=== PATIENT | female | born 1985 | race Caucasian/White ===

== ENCOUNTER 2016-06-29 12:24 | Day surgery (SDC) | payer MEDICAID ==
[~2016-06-29] VITALS: Ht 149.9 cm; Wt 82.3 kg
[~2016-06-29 12:24] MED LIST: ALBU8.5H5 INH; DOCU-30 PO; HYDR-3240 PO; IBUP200T5 PO; ONDA4TAB10 PO
[2016-06-29] MEDS ORDERED: LACTATED RINGERS 1,000 ML IV SCH (12:57)
[2016-06-29 12:58] VITALS: BP 130/86
[2016-06-29] MEDS ORDERED: EPHEDRINE 50 MG/ML, 1ML IVPush PRN (13:00)
[2016-06-29] MEDS ORDERED: LIDOCAINE 1%, 2ML SQ PRN (13:00)
[2016-06-29] MEDS ORDERED: LABETALOL 5MG/ML, 20ML IV PRN (13:00)
[2016-06-29] MEDS ORDERED: ACETAMINOPHEN 325 MG TABLET PO PRN (13:00)
[2016-06-29] MEDS ORDERED: ONDANSETRON 2MG/ML, 2ML IVPush PRN (13:00)
[2016-06-29] MEDS ORDERED: ALBUTEROL SULFATE 2.5 MG/3 ML NPPB PRN (13:00)
[2016-06-29] MEDS ORDERED: FENTANYL PF 100 MCG/2ML IV PRN (13:00)
[2016-06-29] MEDS ORDERED: OXYcodone 5 MG/5 ML ORAL.SOL UDC PO PRN (13:00)
[2016-06-29] MEDS ORDERED: METOPROLOL 1 MG/ML, 5ML IV PRN (13:00)
[2016-06-29] MEDS ORDERED: hydrALAzine 20 MG/ML, 1ML IV PRN (13:00)
[2016-06-29] MEDS ORDERED: CHLORHEXIDINE MOUTHWASH 15 ML UDC ONE (14:13)
[2016-06-29] MEDS ORDERED: FENTANYL PF 100 MCG/2ML ONE ×2 (14:33→15:09)
[2016-06-29] MEDS ORDERED: ONDANSETRON 2MG/ML, 2ML ONE (14:35)
[2016-06-29] MEDS ORDERED: SUCCINYLCHOLINE 20 MG/ML, 10ML ONE (14:35)
[2016-06-29] MEDS ORDERED: PROPOFOL 10 MG/ML, 20ML ONE (14:35)
[2016-06-29] MEDS ORDERED: DEXAMETHASONE 4 MG/ML, 1ML ONE (14:35)
== END 2016-06-29 17:05 ==
LOC: OUT 12:24
PROVIDERS: ATTEND Anesthesiology
DX: K29.60 Other gastritis without bleeding (principal); K80.10 Calculus of gallbladder with chronic cholecystitis without obstruction
CPT/HCPCS: 43237; 88172; 88173; 88177; 88305; 88307; J0330; J1100; J2405; J2704; J3010; J7120

== ENCOUNTER → 2016-07-21 | Outpatient (CLI) | payer MEDICAID ==
[2016-07-21 14:40] LABS: BLOOD UREA NITROGEN 11 mg/dL (7-18)
[2016-07-21 14:43] LABS: ASPARTATE AMINO TRANSFERASE 11 U/L (15-37)
== END | disposition home or self-care (01) ==
LOC: STAR 13:43
PROVIDERS: ATTEND Surgery
DX: Z01.818 Encounter for other preprocedural examination (principal); C25.9 Malignant neoplasm of pancreas, unspecified; Z90.410 Acquired total absence of pancreas; Z90.81 Acquired absence of spleen
CPT/HCPCS: 36415; 80053; 85025; 85610; 93005

== ENCOUNTER 2016-07-26 05:07 | Inpatient (IN) | payer MEDICAID ==
[~2016-07-26] VITALS: Ht 147.3 cm; Wt 83.2 kg
[2016-07-26] MEDS ORDERED: LACTATED RINGERS 1,000 ML IV SCH (05:57)
[2016-07-26 05:58] VITALS: BP 121/83
[2016-07-26] MEDS ORDERED: LIDOCAINE 1%, 2ML SQ PRN (06:00)
[2016-07-26] MEDS ORDERED: THROMBIN 20,000 UNIT VIAL TP ONE (06:09)
[2016-07-26] MEDS ORDERED: BUPIVACAINE/PF 0.25% ONE (06:33)
[2016-07-26 06:41] LABS: HCG UR OBC PASS
[2016-07-26] MEDS ORDERED: KETAMINE 10 MG/ML, 20ML ONE (06:49)
[2016-07-26] MEDS ORDERED: FENTANYL PF 100 MCG/2ML ONE ×2 (06:49→09:12)
[2016-07-26] MEDS ORDERED: FENTANYL PF 250 MCG/5ML ONE (06:49)
[2016-07-26] MEDS ORDERED: MIDAZOLAM 1 MG/ML, 2ML ONE (06:49)
[2016-07-26] MEDS ORDERED: DO NOT GIVE XX SCH ×4 (08:30→14:00)
[2016-07-26] MEDS ORDERED: hydrALAzine 20 MG/ML, 1ML IV PRN ×2 (08:30→14:00)
[2016-07-26] MEDS ORDERED: MEPERIDINE/PF 25MG/0.5ML IVPush PRN (08:30)
[2016-07-26] MEDS ORDERED: OXYcodone 5 MG/5 ML ORAL.SOL UDC PO PRN (08:30)
[2016-07-26] MEDS ORDERED: LABETALOL 5MG/ML, 20ML IV PRN (08:30)
[2016-07-26] MEDS ORDERED: PROMETHAZINE 25 MG/ML, 1ML IV PRN (08:30)
[2016-07-26] MEDS ORDERED: ONDANSETRON 2MG/ML, 2ML IVPush PRN (08:30)
[2016-07-26] MEDS ORDERED: NALOXONE 0.4 MG/ML, 1ML IVPush PRN ×2 (08:30)
[2016-07-26] MEDS ORDERED: EPHEDRINE 50 MG/ML, 1ML IVPush PRN ×2 (08:30→14:00)
[2016-07-26] MEDS ORDERED: MIDAZOLAM 1 MG/ML, 2ML IV PRN (08:30)
[2016-07-26] MEDS ORDERED: FENTANYL PF 100 MCG/2ML EPI PRN ×2 (08:30→14:00)
[2016-07-26] MEDS: FENTANYL PF 100 MCG/2ML IV PRN ×4 (09:10→10:07)
[2016-07-26] MEDS ORDERED: HYDROmorphone 2 MG/ML, 1ML ONE (09:12)
[2016-07-26] MEDS: HYDROmorphone 1 MG/ML, 1ML IV PRN ×4 (09:16→10:33)
[2016-07-26] MEDS: HYDROMORPHONE EPIDCONT SCH (09:54)
[2016-07-26] MEDS: ROPIVACAINE EPIDCONT SCH (09:54)
[2016-07-26] MEDS: SODIUM CHLORIDE 0.9% EPIDCONT SCH (09:54)
[2016-07-26] MEDS: SODIUM CHLORIDE FLUSH 10ML SYR IVF SCH ×2 (12:07→22:49)
[2016-07-26 13:45] VITALS: BP 128/85
[2016-07-26] MEDS ORDERED: ACETAMINOPHEN 650 MG SUPP PR PRN (14:00)
[2016-07-26] MEDS ORDERED: ACETAMINOPHEN 325 MG TABLET PO PRN (14:00)
[2016-07-26] MEDS ORDERED: ENALAPRILAT 1.25 MG/ML, 2ML IV PRN (14:00)
[2016-07-26] MEDS ORDERED: SODIUM CHLORIDE 0.9%, 500ML IV PRN (14:00)
[2016-07-26] MEDS ORDERED: ALBUTEROL SULFATE 2.5 MG/3 ML NPPB PRN (14:30)
[2016-07-26] MEDS: POTASSIUM CHLORIDE 20 MEQ in LACTATED RINGERS 1,000 ML IV SCH ×2 (15:05→23:48)
[2016-07-26] MEDS: CEFAZOLIN PMX 2GM/50ML 50 ML IVPB SCH ×2 (15:13→22:49)
[2016-07-26] MEDS ORDERED: CEFAZOLIN 1,000 MG ONE (16:02)
[2016-07-26] MEDS ORDERED: DEXAMETHASONE 4 MG/ML, 1ML ONE (16:02)
[2016-07-26] MEDS ORDERED: EPHEDRINE 50 MG/ML, 1ML ONE (16:02)
[2016-07-26] MEDS ORDERED: ONDANSETRON 2MG/ML, 2ML ONE (16:02)
[2016-07-26] MEDS ORDERED: PROPOFOL 10 MG/ML, 20ML ONE (16:02)
[2016-07-26] MEDS ORDERED: ROCURONIUM 10 MG/ML ONE (16:02)
[2016-07-26 18:36] VITALS: BP 121/79
[2016-07-26 21:03] VITALS: BP 124/84
[2016-07-26 23:24] VITALS: BP 108/63
[2016-07-26] MEDS: NALOXONE 0.4 MG/ML, 1ML IVPush PRN (23:48)
[2016-07-27 03:02] VITALS: BP 111/66
[2016-07-27 06:01] LABS: BLOOD UREA NITROGEN 8 mg/dL (7-18)
[2016-07-27 06:06] LABS: ASPARTATE AMINO TRANSFERASE 13 U/L (15-37)
[2016-07-27 06:53] VITALS: BP 113/71
[2016-07-27] MEDS: ENOXAPARIN 40 MG/0.4 ML SQ SCH (08:22)
[2016-07-27] MEDS: SODIUM CHLORIDE FLUSH 10ML SYR IVF SCH ×2 (08:30→20:27)
[2016-07-27] MEDS: POTASSIUM CHLORIDE 20 MEQ in LACTATED RINGERS 1,000 ML IV SCH (12:09)
[2016-07-27 12:50] VITALS: BP 117/78
[2016-07-27 20:00] VITALS: BP 116/75
[2016-07-27] MEDS: HYDROMORPHONE EPIDCONT SCH (21:29)
[2016-07-27] MEDS: ROPIVACAINE EPIDCONT SCH (21:29)
[2016-07-27] MEDS: SODIUM CHLORIDE 0.9% EPIDCONT SCH (21:29)
[2016-07-27] MEDS: NALOXONE 0.4 MG/ML, 1ML IVPush PRN (21:43)
[2016-07-28] VITALS: BP 121/77
[2016-07-28 04:00] VITALS: BP 119/69
[2016-07-28] MEDS: POTASSIUM CHLORIDE 20 MEQ in LACTATED RINGERS 1,000 ML IV SCH ×2 (04:52→23:06)
[2016-07-28 06:26] LABS: BLOOD UREA NITROGEN 5 mg/dL (7-18)
[2016-07-28 08:38] VITALS: BP 115/77
[2016-07-28] MEDS: ENOXAPARIN 40 MG/0.4 ML SQ SCH (09:00)
[2016-07-28] MEDS: SODIUM CHLORIDE FLUSH 10ML SYR IVF SCH ×2 (09:00→21:00)
[2016-07-28 12:24] VITALS: BP 127/83
[2016-07-28] MEDS: OXYcodone 5 MG/5 ML ORAL.SOL UDC PO PRN ×3 (13:32→22:16)
[2016-07-28 18:29] VITALS: BP 117/81
[2016-07-29 00:05] VITALS: BP 111/78
[2016-07-29 01:59] VITALS: BP 131/85
[2016-07-29] MEDS: OXYcodone 5 MG/5 ML ORAL.SOL UDC PO PRN ×6 (02:20→22:34)
[2016-07-29 07:21] LABS: BLOOD UREA NITROGEN 5 mg/dL (7-18)
[2016-07-29 07:30] VITALS: BP 117/75
[2016-07-29] MEDS: SODIUM CHLORIDE FLUSH 10ML SYR IVF SCH ×2 (09:00→21:00)
[2016-07-29] MEDS: ENOXAPARIN 40 MG/0.4 ML SQ SCH (09:07)
[2016-07-29] MEDS: DOCUSATE 100 MG CAPSULE PO SCH ×2 (09:07→21:05)
[2016-07-29 13:15] VITALS: BP 112/77
[2016-07-29 19:59] VITALS: BP 132/87
[2016-07-30 00:37] VITALS: BP 124/84
[2016-07-30] MEDS: OXYcodone 5 MG/5 ML ORAL.SOL UDC PO PRN ×6 (02:19→20:46)
[2016-07-30 08:00] VITALS: BP 127/84
[2016-07-30] MEDS: SODIUM CHLORIDE FLUSH 10ML SYR IVF SCH ×2 (08:11→20:34)
[2016-07-30] MEDS: ENOXAPARIN 40 MG/0.4 ML SQ SCH (08:19)
[2016-07-30] MEDS: DOCUSATE 100 MG CAPSULE PO SCH ×2 (08:19→20:34)
[2016-07-30 15:23] VITALS: BP 128/87
[2016-07-30 20:03] VITALS: BP 122/85
[2016-07-31] MEDS: OXYcodone 5 MG/5 ML ORAL.SOL UDC PO PRN ×5 (00:45→17:00)
[2016-07-31 03:38] VITALS: BP 118/69
[2016-07-31 07:05] VITALS: BP 125/81
[2016-07-31] MEDS: DOCUSATE 100 MG CAPSULE PO SCH ×2 (09:35→11:33)
[2016-07-31] MEDS: ENOXAPARIN 40 MG/0.4 ML SQ SCH (09:35)
[2016-07-31] MEDS: SODIUM CHLORIDE FLUSH 10ML SYR IVF SCH (09:36)
[2016-07-31 12:56] VITALS: BP 122/84
[2016-07-31] MEDS ORDERED: HYDR-3138 PO (16:04)
[2016-07-31] MEDS ORDERED: DOCU-30 PO (16:06)
[2016-07-31 16:58] VITALS: BP 123/77
== END 2016-07-31 17:07 | disposition home or self-care (01) | DRG 406 ==
LOC: ORIP 05:07 → 4NOR 10:44
PROVIDERS: ADMIT Surgery; ATTEND Surgery
PROC: 0FBG0ZZ Excision of Pancreas, Open Approach (ICD-10-PCS; 2016-07-26)
PROC: 0WUF07Z Supplement Abdominal Wall with Autologous Tissue Substitute, Open Approach (ICD-10-PCS; 2016-07-26)
PROC: 07BB0ZZ Excision of Mesenteric Lymphatic, Open Approach (ICD-10-PCS; 2016-07-26)
PROC: 07BP0ZZ Excision of Spleen, Open Approach (ICD-10-PCS; principal; 2016-07-26 07:00)
DX: C25.2 Malignant neoplasm of tail of pancreas (principal); K86.1 Other chronic pancreatitis; K76.0 Fatty (change of) liver, not elsewhere classified; E66.9 Obesity, unspecified; Z68.38 Body mass index [BMI] 38.0-38.9, adult; Z98.51 Tubal ligation status; Z90.49 Acquired absence of other specified parts of digestive tract; K82.8 Other specified diseases of gallbladder
CPT/HCPCS: 36415; 80048; 80053; 81025; 82150; 83690; 85025; 86850; 86900; 86923; 88309; C1729; J0690; J1100; J1170; J1650; J2250; J2310; J2405; J2704; J2795; J3010; J3480; J3490; C1760; J7050; J7120

== ENCOUNTER 2017-11-28 19:59 | Emergency (ER) | payer MEDICAID, OTHER ==
[~2017-11-28] VITALS: Ht 144.8 cm; Wt 86.4 kg
[~2017-11-28 19:59] MED LIST changes: +DOCU-131 PO; -DOCU-30 PO; +HYDR-3237 PO; +IBUP-1484 PO; -IBUP200T5 PO
[2017-11-28 23:16] VITALS: BP 127/83
== END 2017-11-28 23:19 | disposition home or self-care (01) ==
LOC: ED 22:50
DX: L03.211 Cellulitis of face (principal); L42 Pityriasis rosea; R22.0 Localized swelling, mass and lump, head; J45.909 Unspecified asthma, uncomplicated
CPT/HCPCS: 99283

== ENCOUNTER 2018-02-23 12:52 | Emergency (ER) | payer SELFPAY ==
[~2018-02-23] VITALS: Ht 144.8 cm; Wt 85.5 kg
[2018-02-23 12:53] VITALS: BP 132/84
[2018-02-23 13:33] LABS: RAPID INFLUENZA A Negative (Negative); RAPID INFLUENZA B Negative (Negative)
== END 2018-02-23 13:53 | disposition home or self-care (01) ==
LOC: ED 13:28
DX: B34.9 Viral infection, unspecified (principal); J45.909 Unspecified asthma, uncomplicated; Z90.81 Acquired absence of spleen
CPT/HCPCS: 71046; 87400; 99284

== ENCOUNTER 2018-03-06 15:29 | Emergency (ER) | payer SELFPAY ==
[~2018-03-06] VITALS: Ht 147.3 cm; Wt 76.4 kg
[2018-03-06 15:56] VITALS: BP 121/81
[2018-03-06] MEDS ORDERED: ONDANSETRON ODT 4 MG PO ONE (16:00)
== END 2018-03-06 16:41 | disposition home or self-care (01) ==
LOC: ED 16:07
DX: H66.001 Acute suppurative otitis media without spontaneous rupture of ear drum, right ear (principal); H92.02 Otalgia, left ear; J45.909 Unspecified asthma, uncomplicated; Z90.49 Acquired absence of other specified parts of digestive tract
CPT/HCPCS: 99283

== ENCOUNTER 2018-07-20 15:34 | Emergency (ER) | payer SELFPAY ==
[~2018-07-20] VITALS: Ht 147.3 cm; Wt 85.0 kg
--- NOTE | 2018-07-20 16:00 | NUR ---
TRIAGE NOTE: LOW BACK PAIN RADIATING TO LEFT SIDE ABD. STARTED TODAY APPROX 1.5 HRS [employer]. MULTIPLE ABD SX IN LAST YEAR. Pt also c/o diarrhea, states for "years, ever since my abdominal problems."
--- NOTE | 2018-07-20 16:04 | NUR ---
Des [place], at bedside to evaluate pt.
--- NOTE | 2018-07-20 16:06 | NUR ---
Pt aware of need for urine sample, states that she is not sure if she could provide a sample at this time. Pt advised that not a lot of urine is required.
--- NOTE | 2018-07-20 16:12 | NUR ---
Pt ambulated to imaging, with tech.
[2018-07-20 16:27] LABS: BASOPHILS # (AUTO) 0.14 x10^3/uL (0-0.1); BASOPHILS % (AUTO) 1 % (0-1); EOSINOPHILS # (AUTO) 0.32 x10^3/uL (0-0.4); EOSINOPHILS % (AUTO) 3 % (1-7); LYMPHOCYTES % (AUTO) 38 % (22-44); MD NO; MEAN CORPUSCULAR VOLUME 84.2 fL (80-100); MEAN PLATELET VOLUME 8.2 fL (7.4-10.4); MONOCYTES # (AUTO) 0.74 x10^3/uL (0.2-0.8); MONOCYTES % (AUTO) 7 % (2-9); NEUTROPHILS # (AUTO) 5.51 x10^3/uL (1.8-6.8); NEUTROPHILS % (AUTO) 51 % (42-75); PLATELET COUNT 438 x10^3/uL (130-400); RED BLOOD COUNT 4.44 x10^6/uL (3.82-5.3); RED CELL DISTRIBUTION WIDTH 15.1 % (9.6-15.2)
[2018-07-20 16:37] LABS: ALANINE AMINOTRANSFERASE 23 U/L (12-78); ALBUMIN 3.5 g/dL (3.4-5.0); ANION GAP 6 mmol/L (5-15); CALCIUM 8.7 mg/dL (8.5-10.1); CHLORIDE 109 mmol/L (98-107)
[2018-07-20 16:41] LABS: ALKALINE PHOSPHATASE 63 U/L (45-117); BILIRUBIN,TOTAL 0.2 mg/dL (0.2-1.0); TOTAL PROTEIN 6.9 g/dL (6.4-8.2)
[2018-07-20] MEDS ORDERED: POTASSIUM CHLORIDE 20 MEQ TAB.ER.PRT PO ONE (17:00)
--- NOTE | 2018-07-20 17:06 | NUR ---
Small urine sample obtained and walked to lab.
[2018-07-20] MEDS ORDERED: POTASSIUM CHLORIDE 20 MEQ TAB.ER.PRT ONE (17:24)
[2018-07-20 17:27] LABS: CULTURE INDICATED? YES; MICROSCOPIC INDICATED
--- NOTE | 2018-07-20 17:27 | NUR ---
PT MEDICATED PER MAR.
[2018-07-20 17:56] VITALS: BP 135/71
--- NOTE | 2018-07-20 17:56 | NUR ---
Patient/Caregiver given discharge instructions and they have confirmed that they understand the instructions. Patient ambulatory with steady gait.
== END 2018-07-20 17:58 | disposition home or self-care (01) ==
LOC: ED 16:23
DX: N30.00 Acute cystitis without hematuria (principal); J45.909 Unspecified asthma, uncomplicated
CPT/HCPCS: 36415; 74022; 80053; 81001; 83690; 84703; 85025; 87086; 99284